=== PATIENT | male | born 1970 | race Two or more races ===

== ENCOUNTER 2024-12-11 12:30 | Inpatient (IN) | payer OTHER ==
[~2024-12-11] VITALS: Ht 170.2 cm; Wt 71.0 kg
[2024-12-11] MEDS: SODIUM CHLORIDE 0.9% 2,150 ML IV ONE (13:30)
[2024-12-11] MEDS: 0.9% SODIUM CHLORIDE 10 ML SYRINGE IVP PRN (13:30)
[2024-12-11 13:33] LABS: BASOPHILS % (AUTO) 0.9 % (0.0-2.0); EOSINOPHILS % (AUTO) 1.4 % (1.0-6.0); HEMATOCRIT 42.3 % (41-53); HEMOGLOBIN 14.2 g/dL (13.5-17.5); LYMPHOCYTES # (AUTO) 1.5 K/uL (1.0-4.8); LYMPHOCYTES % (AUTO) 28.6 % (22.0-44.0); MEAN CORPUSCULAR HEMOGLOBIN 31.6 pg (26.0-34.0); MEAN CORPUSCULAR HGB CONC 33.5 G/dL (31.0-37.0); MEAN CORPUSCULAR VOLUME 94 fL (80-100); MONOCYTES # (AUTO) 0.5 K/uL (0.1-1.0); MONOCYTES % (AUTO) 9.6 % (2.0-9.0); NEUTROPHILS # (AUTO) 3.1 K/uL (1.8-7.7); NEUTROPHILS % (AUTO) 59.5 % (40.0-70.0); PLATELET COUNT (AUTO) 216 K/uL (150-450); RED BLOOD CELL COUNT(AUTO) 4.48 MIL/uL (4.50-5.90); RED CELL DISTRIBUTION WIDTH 12.9 % (11.5-14.5); WHITE BLOOD COUNT (AUTO) 5.2 K/uL (4.5-11.0)
[2024-12-11 13:44] LABS: PROTHROMBIN TIME 10.3 SEC (9.4-11.6)
[2024-12-11 13:47] LABS: APPEARANCE,URINE CLEAR (CLEAR); BILIRUBIN,URINE NEGATIVE (NEGATIVE); COLOR,URINE LIGHT YELLOW (YELLOW); GLUCOSE, URINE (UA) NEGATIVE (NEGATIVE); KETONES,URINE NEGATIVE (NEGATIVE); LEUKOCYTE ESTERASE ,URINE NEGATIVE (NEGATIVE); NITRATE,URINE NEGATIVE (NEGATIVE); OCCULT BLOOD,URINE NEGATIVE (NEGATIVE); PROTEIN,URINE NEGATIVE (NEGATIVE); SPECIFIC GRAVITIY, URINE 1.022 (1.003-1.030)
[2024-12-11 13:49] LABS: LACTIC ACID 1.7 mmol/L (0.4-2.0)
[2024-12-11] MEDS: CefTRIAXone 1 GM/DEXTROSE 50 ML IV ONE (13:54)
[2024-12-11] MEDS ORDERED: SODIUM CHLORIDE 0.9% 100 ML ONE (14:07)
[2024-12-11] MEDS ORDERED: IOHEXOL 350 MG/ML 100 ML VIAL ONE (14:07)
[2024-12-11 14:29] LABS: ANION GAP 6 mmol/L (8-16); CALCIUM, TOTAL 8.3 mg/dL (8.8-10.5); CARBON DIOXIDE 29 mmol/L (22-29); CHLORIDE 106 mmol/L (98-107); CREATININE 1.15 mg/dL (0.60-1.30); GLOMERULAR FILTR. RATE CALC > 60 mL/min (>60); GLUCOSE,RANDOM 105 mg/dL (70-110); POTASSIUM 4.5 mmol/L (3.5-5.1); SODIUM SERUM 141 mmol/L (136-145); UREA NITROGEN, BLOOD 20 mg/dL (7-18)
[2024-12-11 14:36] LABS: ALANINE AMINOTRANSFERASE 27 U/L (12-78); ALBUMIN 3.2 g/dL (3.4-5.0); ALKALINE PHOSPHATASE 60 U/L (46-116); ASPARTATE AMINOTRANSFERASE 23 U/L (15-37); BILIRUBIN,TOTAL 0.4 mg/dL (0.1-1.0); TOTAL PROTEIN, SERUM 6.4 g/dL (6.4-8.2); TROPONIN I-HIGH SENSITIVITY 4 ng/L (<76)
[2024-12-11] MEDS: ONDANSETRON HCL 4 MG/2 ML VIAL IVP ONE (15:09)
[2024-12-11] MEDS ORDERED: MORPHINE SULFATE 2 MG/ML SYRINGE IVP PRN (16:30)
[2024-12-11] MEDS ORDERED: HYDROCODONE/ACETAMINOPHEN 5-325 MG TABLET PO PRN (16:30)
[2024-12-11] MEDS ORDERED: MAGNESIUM HYDROXIDE SUSPENSION 30 ML UDCUP PO PRN (16:30)
[2024-12-11] MEDS ORDERED: ACETAMINOPHEN 325 MG TABLET PO PRN (16:30)
[2024-12-11] MEDS ORDERED: BISACODYL 10 MG RECTAL RECTAL SUPPOSITORY PR PRN (16:30)
[2024-12-11] MEDS ORDERED: ONDANSETRON HCL 4 MG/2 ML VIAL IVP PRN (16:30)
[2024-12-11 18:47] VITALS: BP 142/66; PULSE 71; RESP 18; TEMP 98; O2SAT 99
[2024-12-11 19:42] VITALS: BP 117/62; PULSE 75; RESP 18; TEMP 98.3; O2SAT 99
[2024-12-11 20:03] VITALS: BP 117/62; PULSE 75; RESP 18; TEMP 98.3; O2SAT 99
[2024-12-11] MEDS: DOCUSATE SODIUM 100 MG CAPSULE PO SCH (21:10)
[2024-12-12] MEDS: HEPARIN SODIUM,PORCINE 5,000 UNITS/ML VIAL SQ SCH (01:01)
[2024-12-12 08:35] VITALS: BP 121/78; PULSE 72; RESP 17; TEMP 97.9; O2SAT 99
[2024-12-12] MEDS: PANTOPRAZOLE SODIUM 40 MG DR TABLET PO SCH (09:05)
[2024-12-12 11:14] VITALS: BP 124/71; PULSE 77; RESP 19; TEMP 98; O2SAT 97
[2024-12-12] MEDS ORDERED: SODIUM CHLORIDE 0.9% 250 ML IV ONE (13:17)
[2024-12-12] MEDS: PIPERACILLIN/TAZO 3.375 GM/D5W 50 ML IV SCH (13:27)
[2024-12-12 16:04] VITALS: BP 120/64; PULSE 70; RESP 18; TEMP 97.8; O2SAT 97
[2024-12-13 08:24] VITALS: BP 130/83; PULSE 80; RESP 18; TEMP 97.2; O2SAT 98
[2024-12-13 13:20] VITALS: BP 123/75; PULSE 60; RESP 18; TEMP 98; O2SAT 99
[2024-12-13 15:52] VITALS: BP 115/68; PULSE 68; RESP 18; TEMP 98.3; O2SAT 98
[2024-12-13 20:06] VITALS: BP 121/69; PULSE 74; RESP 16; TEMP 97.9; O2SAT 98
[2024-12-13] MEDS: ZOLPIDEM TARTRATE 5 MG TABLET PO PRN (20:21)
[2024-12-14 00:37] VITALS: BP 107/71; PULSE 73; RESP 17; TEMP 98; O2SAT 96
[2024-12-14 04:25] VITALS: BP 111/77; PULSE 67; RESP 18; TEMP 98; O2SAT 97
[2024-12-14 07:26] LABS: BASOPHILS % (AUTO) 0.7 % (0.0-2.0); EOSINOPHILS % (AUTO) 1.9 % (1.0-6.0); HEMATOCRIT 43.9 % (41-53); LYMPHOCYTES # (AUTO) 1.9 K/uL (1.0-4.8); LYMPHOCYTES % (AUTO) 27.8 % (22.0-44.0); MEAN CORPUSCULAR HEMOGLOBIN 31.6 pg (26.0-34.0); MEAN CORPUSCULAR HGB CONC 34.3 G/dL (31.0-37.0); MEAN CORPUSCULAR VOLUME 92 fL (80-100); MONOCYTES # (AUTO) 0.6 K/uL (0.1-1.0); MONOCYTES % (AUTO) 8.3 % (2.0-9.0); NEUTROPHILS # (AUTO) 4.3 K/uL (1.8-7.7); NEUTROPHILS % (AUTO) 61.3 % (40.0-70.0); PLATELET COUNT (AUTO) 216 K/uL (150-450); RED BLOOD CELL COUNT(AUTO) 4.76 MIL/uL (4.50-5.90); RED CELL DISTRIBUTION WIDTH 12.9 % (11.5-14.5)
[2024-12-14 07:34] LABS: ANION GAP 6 mmol/L (8-16); CALCIUM, TOTAL 8.5 mg/dL (8.8-10.5); CARBON DIOXIDE 29 mmol/L (22-29); CHLORIDE 104 mmol/L (98-107); CREATININE 1.03 mg/dL (0.60-1.30); GLOMERULAR FILTR. RATE CALC > 60 mL/min (>60); GLUCOSE,RANDOM 94 mg/dL (70-110); POTASSIUM 4.1 mmol/L (3.5-5.1); SODIUM SERUM 139 mmol/L (136-145); UREA NITROGEN, BLOOD 15 mg/dL (7-18)
[2024-12-14 08:00] VITALS: BP 112/74; PULSE 64; RESP 18; TEMP 98.2; O2SAT 99
[2024-12-14 12:00] VITALS: BP 115/70; PULSE 60; RESP 18; TEMP 98.4; O2SAT 98
[2024-12-14 15:20] VITALS: BP 112/72; PULSE 58; RESP 18; TEMP 98; O2SAT 99
== END 2024-12-14 15:30 | DRG 394 ==
LOC: EMS 12:35 → EDH 16:28 → 5S 18:38
PROVIDERS: ADMIT Internal Medicine; ATTEND Internal Medicine
DX: K63.2 Fistula of intestine (principal); L02.211 Cutaneous abscess of abdominal wall; F15.90 Other stimulant use, unspecified, uncomplicated; R79.89 Other specified abnormal findings of blood chemistry; R55 Syncope and collapse; Z91.199 Patient's noncompliance with other medical treatment and regimen due to unspecified reason
CPT/HCPCS: 71045; 74177; 80048; 80076; 81003; 83605; 83735; 84145; 84484; 85025; 85610; 87040; 87070; 87205; 93005; 93306; 96365; 96375; 99285; J0696; J1644; J2405; J2543; J7050; 36415-L1; 36415-TC